=== PATIENT | male | born 1950 ===

== ENCOUNTER 2025-07-25 08:42 | Outpatient (CLI) | payer MEDICARE, SELFPAY ==
--- NOTE | 2025-07-25 | ECG_ITS ---
[facility] Test Date: 2025-07-25 Pat Name: Cam Winter Department: Room: Gender: Male Individual Pension Adviser: : 1950 Requested By: Mukund Crowe Order Number: [id number] Arzola MD: Jessie Huang M.D. Interpretive Statements Lung unchanged pre/post procedure; Intraprocedure shortess of breath; Symptoms resoled by discharge PROCEDURE: At the baseline, the EKG revealed normal sinus rhythm with normal ST Ts. The baseline heart was 68 bpm with a blood pressue of 143/69 mm of Hg Lexiscan was infused over a period of 20 seconds. A total of 0.4 milligrams of Lexiscan was infused. The stress phase was continued for a total of 5 minutes. Heart rate at the end of the stress phase was 79 bpm with a blood pressure 120/58 mm of Hg. The EKG at the peak infusion revealed some nonspecific T wave change. Sestamibi was injected 20 seconds after the Lexiscan infusion. Heart rate at the end of the recovery phase was 78 bpm with a blood pressure of 142/58 mm of Hg. CONCLUSION: 1. No significant EKG changes with the LexiScan infusion 2. No LexiScan induced chest pain or cardiac arrhythmia 3. Normal blood pressure and heart rate response 4. Sestamibi/sestamibi perfusion scan pending; see separate report. Electronically Signed On 07-27-2025 20:24:16 WHEEL TUNER by Jessie Huang M.D. [email or web address]
[2025-07-25 09:12] VITALS: BMI 27.4
--- NOTE | 2025-07-25 09:12 | NMCV_ITS ---
NM belem perf SPECT r/s* [id number] Cam Winter Age: 75 Gender: M : 1950 Exam Date: 07/25/2025 09:50 Ordering Phys: Mukund Crowe Technologist: PAULO Schroeder Exam Location: [facility] Indications: cp STRESS TEST Please see separate stress test report in [facility] for full findings IMAGE PROTOCOL Rest/Stress 1 Lexiscan Day Radiopharmaceutical Dose (mCi) Administration Site Administered by Rest: Tc-99m 10.5 IV PAULO Schroeder Sestamibi Stress:Tc-99m 32.9 IV PAULO Gabriel Sestamibi Rest: 25-Jul-2025 60 Discovery 630 Stress: 25-Jul-2025 30 Discovery 630 0.4mg Lexiscan. Images obtained in supine and prone position. SPECT RESULTS Technical Quality: Good Raw Data Analysis: Normal Image Corrections: No attenuation or motion correction applied Summed Stress Score: 16 Summed Rest Score: 11 Summed Difference Score: 7 PERFUSION FINDINGS Moderate area of moderate to moderately severe decrease tracer uptake involving the mid anteroseptal, inferoseptal, inferior and all the apical segments with some reversibility in all these areas. FUNCTIONAL RESULTS (calculated via Gated SPECT) Stress Image LV EF (%): 75 Stress EDV (mL):79 TID: 1.13 Stress ESV (mL):20 FUNCTIONAL FINDINGS: Segmental wall motion analysis revealing no gross wall motion abnormalities IMPRESSIONS 1. 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 2. Normal LV ejection fraction 75%. 3. LV wall motion analysis revealing no gross wall motion abnormalities. 4. Normal LV volume No similar previous studies are available for comparison Dr Jessie Huang MD [facility] (Electronically Signed) Final Date: 25 July 2025 13:03 S
[2025-07-25 11:14] VITALS: BP 142/58; PULSE 76
== END 2025-07-25 08:43 | disposition home or self-care (01) ==
LOC: CDL 08:53
PROVIDERS: PCP Family Medicine; Visit Provider Family Medicine
DX: I25.10 Atherosclerotic heart disease of native coronary artery without angina pectoris (principal); R93.1 Abnormal findings on diagnostic imaging of heart and coronary circulation
CPT/HCPCS: 36415; 78452; 93017; 96374; A9500; J2785